=== PATIENT | female | born 1945 | race Caucasian/White ===

== ENCOUNTER 2019-06-12 08:56 | Day surgery (SDC) | payer OTHER ==
[2019-06-09 11:14] LABS: Absolute Lymphocytes (CBC) 1.6 K/uL (0.7-4.9); Basophils % 0.7 % (0-1.3); Hematocrit 39.4 % (36.0-45.0); Lymphocytes % 19.7 % (15.3-44.8); MPV 9.8 fL (7.6-11.3); RBC Red Blood Cell Count 4.22 M/uL (3.86-4.86)
[2019-06-09 11:15] LABS: Urine Appearance CLEAR; Urine Bilirubin NEGATIVE (NEG); Urine Blood NEGATIVE (NEG); Urine Color YELLOW; Urine Glucose NEGATIVE (NEG); Urine Protein NEGATIVE (NEG); Urine Specific Gravity <=1.005 (1.005-1.030); Urine Urobilinogen 0.2 mg/dL (0.2-1.0); Urine pH 7.5 (5.0-7.0)
[2019-06-09 11:20] LABS: Protime INR 0.95; Urine Microscopic Reflex NO UMIC
[2019-06-12] MEDS ORDERED: NA CHLORIDE 0.9% 1,000 ML ONE ×5 (09:03→16:47)
[2019-06-12] MEDS ORDERED: CEFAZOLIN/SWI 2gm 2 GM/20 ML SYR ONE (09:03)
[2019-06-12] MEDS ORDERED: SCOPOLAMINE HYDROBROMIDE PATCH TD ONE (09:03)
[2019-06-12] MEDS ORDERED: LIDOCAINE 2% MPF 5 ML VIAL ONE (10:28)
[2019-06-12] MEDS ORDERED: MIDAZOLAM HCL 2 MG/2 ML INJ ONE (10:28)
[2019-06-12] MEDS ORDERED: propofoL 200 MG/20 ML VIAL IV ONE (10:28)
[2019-06-12] MEDS ORDERED: FENTANYL CITR 250 MCG/5 ML ONE ×2 (10:28→14:16)
[2019-06-12] MEDS ORDERED: ROCURONIUM 50 MG/5 ML VIAL IV ONE ×2 (10:28→16:45)
[2019-06-12] MEDS ORDERED: GLYCOPYRROLATE 0.2 MG/ML SYR ONE ×2 (10:28→16:57)
[2019-06-12] MEDS ORDERED: dexAMETHasone 10 MG/ML VIAL ONE (11:06)
[2019-06-12] MEDS ORDERED: NA CHLORIDE 0.9% 100 ML IV ONE (11:06)
[2019-06-12] MEDS ORDERED: CEFAZOLIN SODIUM 1 GM/VIAL ONE ×2 (11:07→16:45)
[2019-06-12] MEDS ORDERED: ONDANSETRON 4 MG/2 ML VIAL ONE ×2 (11:09→16:57)
[2019-06-12] MEDS: BUPIVACAINE 0.25% PF 30 ML VIAL ONE ×2 (12:15→16:15)
[2019-06-12] MEDS: VASOPRESSIN 20 UNIT/ML VIAL ONE ×2 (13:32→17:49)
[2019-06-12] MEDS ORDERED: EPHEDRINE SULF 50 MG/ML VIAL ONE (14:54)
--- NOTE | 2019-06-12 15:11 | P.BOP ---
Preoperative diagnosis: intrabdominal adhesions, intraoperative consult Postoperative diagnosis: same Primary procedure: Laparoscopic lysis of adhesions Estimated blood loss: <5cc Specimen: none Findings: pericecal adhesions, left sigmoid adhesions Anesthesia: General Transferred to: Recovery Room Condition: Good
[2019-06-12] MEDS ORDERED: NS 0.9% VIAL 10 ML ONE (16:45)
[2019-06-12] MEDS ORDERED: Phenylephrine HCl 10 MG/ML 1 ML VIAL ONE (16:54)
[2019-06-12] MEDS ORDERED: Mastisol Adhesive Liq ONE (16:56)
[2019-06-12] MEDS ORDERED: NEOSTIGMINE 1 MG/ML -10 ML VIAL ONE (16:57)
[2019-06-12] MEDS ORDERED: KETOROLAC 30 MG/ML INJ ONE (16:57)
[2019-06-12] MEDS ORDERED: ONDANSETRON 4 MG/2 ML VIAL IV PRN (18:03)
[2019-06-12] MEDS ORDERED: MORPHINE 4 MG/ML SYR IV PRN (18:03)
[2019-06-12] MEDS ORDERED: PROMETHAZINE INJ 25 MG/ML AMP IV PRN (18:03)
--- NOTE | 2019-06-12 18:13 | P.BOP ---
Preoperative diagnosis: apical anterior and posterior prolapse, occult ANJU Postoperative diagnosis: same, extensive small and large bowel adhesions Primary procedure: Lapsc SCP, anterior repair, MUS, perineorrhaphy, cysto Secondary procedure: lysis of adhesions bladder and bowel Other procedure(s): Laparoscopic lysis of adhesions Environmental Programs Specialist: mahogany corbett (environmental emergencies assistant) Estimated blood loss: <50 Specimen: none Findings: extensive cecal sigmoid/small bowel adhesions, bladder adhesions from mesh Anesthesia: General Complications: None Drain(s): Urinary catheter Implants: Upsylon, TVT-O Fluids & blood products: [id number] Transferred to: Recovery Room (0/+1/-3/3.5/mod/6/0/0/n/a, left SSLF colpopexy no intact from past repair) Condition: Good
[2019-06-12 18:35] VITALS: O2SAT 95
[2019-06-12] MEDS: MORPHINE 4 MG/ML SYR ONE ×2 (18:36→18:48)
--- NOTE | 2019-06-12 20:10 | OP ---
Surgeon: Miguel Shah MD The intraoperative consult and lysis of adhesions consult. Preoperative Diagnosis: Intraabdominal adhesions. Intraoperative consult, please refer to Dr. Caceres's note for details on the preoperative diagnosis and postoperative diagnosis. Procedure: From my standpoint, laparoscopic lysis of adhesions. Specimen: None. Findings: adhesions and left sigmoid area adhesions. Anesthesia: General. Indications: This is the case of a 73-year-old patient brought to the OR by Dr. Caceres for gynecol ogical procedures. At the beginning of the case, they noticed patient had adhesions on the right low er quadrant from apparently previous appendectomy, also adhesions of the sigmoid area also. The area of the cul-de-sac was already inspected by Dr. Caceres. The ureters have been also identified. Si nce the adhesions involved part of the bowel, Dr. Caceres asked me to see if I can take a look at th e area and need lysis of adhesions. She asked me to see if I can do dissecting of the surgery for he r. So, I scrub in on the case. With the bowel laparoscopic instruments already on it we first move to the right lower quadrant. We have fixation of that the cecum and the small bowel to the right low er quadrant from previous surgery. So carefully we proceeded to dissect the area once again preserve the ureters at all time and proceed to do lysis of adhesions until part of the cecum and part of the small bowel. The case was done without any enterotomies with the LigaSure. Patient tole rated that procedure well. No bleeding. No bowel leak. The bowel now is mobilized the right side, but now on the left side we also have the same situation. Dr. Caceres already identified the ureter s clearly in view and then we proceeded to do the lysis of adhesions. Sigmoid was attached to the ar ea near the cul-de-sac carefully without doing any enterotomies. We proceeded to remove the adhesion s in the area. No bleeding. The bowel was intact. No enterotomies. The ureters still intact. So, Dr. Caceres now would start her surgery for the proposed procedure. Since my service no longer nee ded at this moment for lysis of adhesions, will go ahead and scrub out the case. The patient will co ntinue under the care of Dr. Caceres in their assistance. CASSIUS/CHERYL Voice ID: [id number] Report ID: [id number]
[2019-06-12] MEDS: Ringers Lactate 1,000 ML IV SCH (20:16)
[2019-06-12] MEDS: PSYLLIUM 1 PKT PO SCH (20:52)
[2019-06-12] MEDS: GABAPENTIN 300 MG CAP PO SCH (20:53)
[2019-06-12] MEDS ORDERED: HOME MED 1 EA UNK (Gabapentin [Gabapentin] 300 MG) PO SCH (21:00)
[2019-06-12] MEDS ORDERED: ATORVASTATIN 10 MG TAB PO SCH (21:00)
[2019-06-12] MEDS ORDERED: SALMETEROL IH SCH (21:00)
[2019-06-12] MEDS ORDERED: FLUTICASONE IH SCH (21:00)
[2019-06-13] MEDS: HEPARIN 5000 UNIT/ML 1 ML VIAL SQ SCH ×2 (01:05→08:45)
[2019-06-13] MEDS: ACETAMINOPHEN 500 MG TAB PO PRN ×2 (01:12→06:43)
--- NOTE | 2019-06-13 01:12 | OP ---
Date of Procedure: 06/12/2019 Surgeon: Yenny Caceres MD Test Equipment Mechanic: Stephon Lees. Preoperative Diagnoses: Apical and anterior posterior prolapse, occult stress urinary incontinence. Postoperative Diagnoses: Apical and anterior-posterior prolapse, occult stress urinary incontinence, small and large bowel extensive adhesions, bladder adhesions, as well as perineal body defect. Procedures Performed: Laparoscopic sacral colpopexy, vaginal anterior repair, vaginal mid urethral s ling, perineorrhaphy, cystoscopy, lysis of adhesions by me for bladder and bowel and lysis of adhesio ns of the cecum and sigmoid for Dr. Shah. Estimated Blood Loss: Less than 50. Specimens: No specimens. Complications: No complications. Drains: Bender catheter. Implants: Epsilon and TVT-O. Urine Output: 400. Findings: Intraop exam under anesthesia POP-Q 0, +1, -3, 3.5; moderate 6, 0, 0, NA. Left sacrospino us colpopexy tack was not intact and prolapsing whereas the right one was intact. There was a centra l bladder defect as well. There were extensive adhesions of the bladder underneath the mesh on the anterior wall when approache d laparoscopically. Vaginally, a similar mesh was encountered. Cecal adhesions to the anterior abdominal wall, right lateral wall, small bowel adhesions to the cecu m and to the lateral wall on the right side. A large bowel adhesion starting in the left pelvic brim going all the way down the left pelvic sidewall, adhesions to the ureter. Extensive endometriosis, still implants seen all over the sigmoid colon, all over the peritoneum of the pelvis, and in the lat eral sidewall and at the brim of the pelvis and slightly above as well. These implants were left in place. There was no way that all these could be excised and there was no indication of such from the pelvic pain standpoint. The mesh was attached to the apex anteriorly about 1.5 cm close to the apex of the vagina and then po steriorly it was dissected about 5 cm and attached with a 2 cm gap between the apex of the Y and the apex of the vagina. Protac used for tacking at the anterior longitudinal ligament. Indications For Procedure: The patient is a 73-year-old with recurrent vaginal prolapse, symptomatic bulge, had an anterior elevate in 2011, now with recurrence of prolapse she has been offered pessary observation and physical therapy surgery. She wanted to proceed with surgery. Discussed about vagi nal and laparoscopic repairs, vaginal repair was highly encouraged. However, the patient did not wan t to consider another vaginal repair because this had failed in the past. It was explained to her th at the colpopexy could be performed through a posterior approach, but she preferred to have an apical repair through the abdominal cavity because she knew that the recurrence rate with this would be low est and this is what she wanted, fully understanding that there would be bowel issue that could be en countered, the risk of fistula, bladder denervation, all these. She was consented and taken back to the OR. All the normal complications including bleeding, infection, injury to the bowel, bladder and ureters were all discussed. Not sexually active, dyspareunia, was also discussed with the patient. Description Of Procedure: After informed consent was verified, she was taken back to OR, placed in t he supine fashion on operating table. A 2 g of Ancef were given. She was placed in a dorsal lithoto my position. Pelvic exam performed, POP-Q as above. Abdomen, vulva, vagina, and perineum were prepp ed and draped in a sterile fashion. Bender was placed to drain the bladder and the vaginal retractors from the Epsilon kit was used. 1 cm infraumbilical incision was made with the scalpel using the Has son technique. Peritoneal entry was secured and insufflated. Then all the adhesions were seen in th e central area, right lateral aspect, and left lateral aspects from the omentum and small bowel to th e anterior abdominal wall. So, a 5 left port was placed under direct vision. Then, all the adhesion s were taken down with the help of the scissors and the Harmonic. Once all the anterior abdominal wa ll adhesions were taken down and the anterior right lower quadrant adhesions were also taken down wit h push-spread technique, then ports were placed, 5 suprapubic and 2 left and right lower quadrants we re placed. Then systematically adhesions were taken down from the left pelvic brim all the way to th e separate the ureter. The ureter was dissected and medially. Bowel was taken laterally f rom the vaginal cuff. From the lateral wall, sigmoid had to be at the distal part of the u reter where this was together by Dr. Shah as well as the cecal and small bowel adhesions on the r ight side, some of the adhesions were taken down by me and some by him. Then, once all these were ta naida down, they were tacked up. 3-0 Monocryl was used to corn picker epiploicae and the left upper quadra nt pole retracted with Abdulkadir-Lee Ann needle. Then the sacral promontory was visualized and the pro cedure was going to be feasible. So, at this time, dissection was started. Anteriorly, the peritone um covering right on the apex was opened up to get opening into the bladder and to the anterior ally rtment. Once this was dissected at least a 1.5 cm, I encountered the mesh and it was very difficult to separate this without getting into the vagina or devascularizing the bladder. So, since there was 1.5 cm space distal to the vaginal apex, this would be the point of attachment for the sacral colpop exy mesh anteriorly. This was thought to be sufficient and that the rest would be to fixed vaginally . Posteriorly, the dissection was performed to at least 6 cm opening up the posterior peritoneum and dissecting down the rectum. Once this was dropped adequately from [id number] as well, then perito neum was opened up on the promontory with the Harmonic Scalpel and then the incision was carried down all the way in between the bowel and the right ureter all the way to the area of the left uterosacra l and then connected to the peritoneal opening that exposed the posterior wall. Once this was connec celestine, and this was spread open, the promontory dissection was performed by opening up the presacral fa t protecting the autonomic nerves and then anterior longitudinal ligament was exposed. Once this win mohsen was prepared, then the graft was opened up. It was trimmed to 8 cm in its length. The anterior flap sutured to the sacral arm with a loose stitch. Then, V-Loc placed in the middle of the posterio r leaf and then this was placed in the midline as far distally as the dissection allowed me, which wa s about 6 cm from the apex. Once this was done, 2 passes were taken and this was locked in place and the mesh, brought into the abdominal cavity and laid flat on the sacrum. Then the graft was pulled up superiorly Prolene sutures were placed on each side 2-0 and then tied separately from each port. The graft was laid up anteriorly, freed up by taking out the suture and then the sacral arm was fixed onto the sacral promontory with the help of the ProTack. Three rows of purvi fired first, then fo llowed by 3 more. The second 2 were slightly more lateral and so placed the mesh more central on the promontory and then the tacks were placed. Then the mesh was trimmed, was not too tense, but approp riately tensioned. Then anteriorly the fixation was done with a V-Loc in the center and then 2 Prole ayush on each side, then the peritoneum closed with the help of V-Loc in a Y-shaped fashion. Thorough irrigation and suction performed. No evidence of any injury to the ureters or the bladder o r the bowel. All the trocars were removed under direct vision. Fascia was closed at the umbilicus w ith tag sutures and purvi to close all incisions. Anteriorly, midline mid urethral area was picked up, vaginal epithelium was picked up with 2 Allis cl amps, injected with dilute vasopressin of 8 mL, then midline 1 cm incision was made. Dissection was performed on either sides to the ipsilateral obturator space. Obturator membrane perforated. The tr ack opened up at a 45-degree angle to the horizontal and vertical planes, pointing to the ipsilateral shoulder. Both sides were dissected in a similar fashion. Then wing guides were passed and spike p assed. No vaginal perforation on the paravaginal area. Once mesh was tensioned with the help of Metzenbaum in the center, the sheaths were pulled out, mesh trimmed very flushed with the skin and the vaginal epithelium closed with the help of 3-0 Vicryl in a continuous horizontal mattress fashion and then groin incisions closed with the help of Dermabond. Vaginally, mid anterior wall still had a bulge with the lowest point at -2 to -1. When I pulled down with the Allis, the apex was at -8 to get an anterior vaginal wall that is optimal without prolapse. I made a vertical incision for about 2 cm distal to the urethrovesical junction. After injecting d ilute vasopressin, then a transverse incision was made further proximally, a vertical incision was ma de, and then a brenda-shaped area cut out on the vaginal epithelium after dissecting the bladder and it from the vaginal epithelium. This brenda-shaped incision was made. Then closed the underlying connective tissue with the help of 2-0 PDS in a continuous running fashion from side-to-si de. Once this was trimmed and cut, then the vaginal epithelial closure was started with the help of a 2-0 Vicryl in a continuous running fashion starting anteriorly and distally in a vertical fashion a nd then in a horizontal fashion sideways at the proximal part of the anterior wall. Once this was do ne, there was excellent reduction in the bulge anteriorly. Cystoscopy was performed and there was no evidence of any obstruction. Both ureteric orifices had st juana jets of urine and no evidence of any bladder perforation or foreign body. No evidence of any tumors either and close inspection of the entire bladder. On the posterior aspect, there was a defect in the perineal body very distal posterior aspect because only 1.5 to 2 cm of the distal wall was not fully supported as the mesh came down that far. So, a v asopressin was injected. A brenda-shaped incision was made with the help of scalpel dissected with Metzenbaum scissors. Then, the defect here distally the hymen was picked together with the help of 2 -0 Vicryl and then the perineal body picked together with another 2-0 Vicryl interrupted sutures. Th en 3-0 Vicryl was used to continuously close the incision and the posterior wall perineum. Rectal ex am negative for any foreign body or suture. Bender was replaced. Packing was placed. She was recove ring. Instrument needle, and sponge counts x3 were corrected at the end of the case. She was recove red from anesthesia in the OR. Toradol was given and she was taken to the PACU in stable condition. GOLDY/CHERYL Voice ID: [id number] Report ID: [id number]
[2019-06-13] MEDS: Ringers Lactate 1,000 ML IV SCH (03:00)
[2019-06-13] MEDS ORDERED: LOSARTAN/HCTZ 50-12.5 PO SCH (06:00)
[2019-06-13 06:11] LABS: Absolute Lymphocytes (CBC) 1.8 K/uL (0.7-4.9); Basophils % 0.3 % (0-1.3); Hematocrit 30.4 % (36.0-45.0); Lymphocytes % 13.1 % (15.3-44.8); MPV 10.1 fL (7.6-11.3); RBC Red Blood Cell Count 3.27 M/uL (3.86-4.86)
[2019-06-13 06:26] LABS: Potassium 3.7 mmol/L (3.5-5.1)
[2019-06-13 07:11] VITALS: TEMP 98.5
[2019-06-13] MEDS ORDERED: PANTOPRAZOLE 40MG TABLET PO SCH (07:30)
[2019-06-13] MEDS: GABAPENTIN 300 MG CAP PO SCH (07:51)
[2019-06-13 07:52] VITALS: BP 115/60
[2019-06-13] MEDS ORDERED: METFORMIN ER 500 MG TAB PO SCH (08:00)
[2019-06-13 08:59] LABS: Blood Morphology Comment NOT SEEN (NOT SEEN); Platelet Estimate ADEQ; Urine White Blood Cell Casts OK
[2019-06-13] MEDS ORDERED: SITAGLIPTIN PHOS 100 MG TAB PO SCH (09:00)
[2019-06-13] MEDS ORDERED: DOCUSATE NA 100 MG CAP PO SCH (09:00)
[2019-06-13] MEDS: PSYLLIUM 1 PKT PO SCH (09:00)
[2019-06-13] MEDS ORDERED: LANSOPRAZOLE PO SCH (09:00)
[2019-06-13] MEDS ORDERED: AMLODIPINE 5 MG TAB PO SCH (09:00)
[2019-06-13] MEDS ORDERED: FIBER PO SCH (09:00)
== END 2019-06-13 10:30 | disposition home or self-care (01) ==
LOC: OR 08:56 → 2ND-WC 18:03 → OR 06-13 10:30
PROVIDERS: ATTEND Obstetrics & Gynecology
PROC: 0UQF0ZZ Repair Cul-de-sac, Open Approach (ICD-10-PCS; 2019-06-12)
PROC: 0JQC0ZZ Repair Pelvic Region Subcutaneous Tissue and Fascia, Open Approach (ICD-10-PCS; 2019-06-12)
PROC: 0HQ9XZZ Repair Perineum Skin, External Approach (ICD-10-PCS; 2019-06-12)
PROC: 0TSD4ZZ Reposition Urethra, Percutaneous Endoscopic Approach (ICD-10-PCS; 2019-06-12)
PROC: 0DNW4ZZ Release Peritoneum, Percutaneous Endoscopic Approach (ICD-10-PCS; 2019-06-12)
PROC: 0USG4ZZ Reposition Vagina, Percutaneous Endoscopic Approach (ICD-10-PCS; principal; 2019-06-12 10:30)
DX: N99.3 Prolapse of vaginal vault after hysterectomy (principal); N95.2 Postmenopausal atrophic vaginitis; N39.3 Stress incontinence (female) (male); I10 Essential (primary) hypertension; E11.9 Type 2 diabetes mellitus without complications; K66.0 Peritoneal adhesions (postprocedural) (postinfection)
CPT/HCPCS: 57425; 57265; 51992; 85025 ×2; 80048 ×2; 36415 ×2; 86900; 86850; 85610; 86901; 82947 ×2; 85730; 81003; 49329; J2704; J2710; J2370; J2250; J3010 ×2; J1100; J0690 ×3; J7120; J7030 ×5; J2405 ×2

== ENCOUNTER 2021-05-24 06:29 | Day surgery (SDC) | payer OTHER ==
[2021-05-19 11:47] LABS: Absolute Lymphocytes (CBC) 2.1 K/uL (0.7-4.9); Basophils % 0.9 % (0-1.3); Hematocrit 40.3 % (36.0-45.0); Lymphocytes % 24.6 % (15.3-44.8); MPV 9.1 fL (7.6-11.3); RBC Red Blood Cell Count 4.24 M/uL (3.86-4.86)
[2021-05-19 11:51] LABS: Protime INR 0.95
[2021-05-19 11:58] LABS: Potassium 3.9 mmol/L (3.5-5.1)
[2021-05-19 15:40] LABS: Urine Appearance CLOUDY (Clear); Urine Bilirubin NEGATIVE (Negative); Urine Blood NEGATIVE (Negative); Urine Color YELLOW (Yellow); Urine Glucose NEGATIVE (Negative); Urine Protein NEGATIVE (Negative); Urine Urobilinogen 0.2 mg/dL (0.2-1.0); Urine pH 6.5 (5.0-7.0)
[2021-05-19 15:47] LABS: Urine Microscopic Reflex ORDER UMIC
[2021-05-19 15:49] LABS: Urine Bacteria >50 /HPF (<20); Urine RBC <5 /HPF (NONE SEEN)
[2021-05-23 12:16] LABS: Absolute Lymphocytes (CBC) 2.2 K/uL (0.7-4.9); Basophils % 0.8 % (0-1.3); Hematocrit 36.5 % (36.0-45.0); Lymphocytes % 24.2 % (15.3-44.8); MPV 9.1 fL (7.6-11.3); RBC Red Blood Cell Count 3.85 M/uL (3.86-4.86)
[2021-05-24] MEDS ORDERED: NA CHLORIDE 0.9% 1,000 ML ONE (06:35)
[2021-05-24] MEDS ORDERED: CEFAZOLIN/SWI 2gm 2 GM/20 ML SYR ONE (06:35)
[2021-05-24] MEDS ORDERED: NA CHLORIDE 0.9% 100 ML IV ONE (06:54)
[2021-05-24] MEDS ORDERED: CEFAZOLIN SODIUM 1 GM/VIAL ONE (06:54)
[2021-05-24] MEDS ORDERED: VASOPRESSIN 20 UNIT/ML VIAL ONE (06:55)
[2021-05-24] MEDS ORDERED: LIDOCAINE 1% W/EPI 1:100,000 MDV 20 ML VIAL ONE (06:55)
[2021-05-24] MEDS ORDERED: GLYCOPYRROLATE 0.2 MG/ML SYR ONE ×2 (07:04→08:21)
[2021-05-24] MEDS ORDERED: MIDAZOLAM HCL 2 MG/2 ML INJ ONE (07:04)
[2021-05-24] MEDS ORDERED: LIDOCAINE 1% MPF 2 ML AMPULE ONE (07:05)
[2021-05-24] MEDS ORDERED: propofoL 200 MG/20 ML VIAL IV ONE (07:05)
[2021-05-24] MEDS ORDERED: FENTANYL CITR 100 MCG/2 ML ONE (07:05)
[2021-05-24] MEDS ORDERED: ROCURONIUM 50 MG/5 ML VIAL IV ONE (07:07)
[2021-05-24] MEDS ORDERED: ACETAMINOPHEN 500 MG TAB ONE (07:22)
[2021-05-24] MEDS ORDERED: dexAMETHasone 10 MG/ML VIAL ONE (08:19)
[2021-05-24] MEDS ORDERED: KETOROLAC 30 MG/ML INJ ONE (08:19)
[2021-05-24] MEDS ORDERED: ONDANSETRON 4 MG/2 ML VIAL ONE (08:21)
[2021-05-24] MEDS ORDERED: NEOSTIGMINE 1 MG/ML -5 ML ONE (08:31)
[2021-05-24] MEDS ORDERED: HYDROCODONE/APAP 5/325 MG TAB PO PRN (08:53)
[2021-05-24] MEDS ORDERED: HOME MED 1 EA UNK (L.Acidoph,Paracasei, B.Lactis [Probiotic] Capsule) PO SCH (09:00)
[2021-05-24] MEDS ORDERED: HOME MED 1 EA UNK (Cranberry [Cranberry] 500 MG Capsule) PO SCH (09:00)
[2021-05-24] MEDS ORDERED: CRANBERRY FRUIT EXTRACT 400 MG CAP PO SCH (09:00)
[2021-05-24] MEDS ORDERED: PSYLLIUM 1 PKT PO SCH (09:00)
[2021-05-24] MEDS ORDERED: SITAGLIPTIN PHOS 100 MG TAB PO SCH (09:00)
[2021-05-24] MEDS ORDERED: ESTRADIOL 10 MCG VAG SCH (09:00)
[2021-05-24] MEDS ORDERED: ASPIRIN 81 MG CHEWABLE TABLET PO SCH (09:00)
[2021-05-24] MEDS ORDERED: METFORMIN ER 500 MG TAB PO SCH (09:00)
[2021-05-24] MEDS ORDERED: [UNRECOGNIZED DRUG - MIXTURE] PO SCH (09:00)
[2021-05-24] MEDS ORDERED: RALOXIFENE HCL 60 MG TAB PO SCH (09:00)
[2021-05-24] MEDS ORDERED: GABAPENTIN 300 MG/6 ML PO SCH (09:00)
[2021-05-24] MEDS ORDERED: AMLODIPINE 5 MG TAB PO SCH (09:00)
[2021-05-24] MEDS ORDERED: DOCUSATE NA 100 MG CAP PO SCH (09:00)
[2021-05-24] MEDS ORDERED: HOME MED 1 EA UNK (Fluticasone/Salmeterol [Advair Hfa 115-21 Mcg Inhaler] 12 GM Hfa.Aer.Ad IH SCH (09:00)
[2021-05-24] MEDS ORDERED: PANTOPRAZOLE 40MG TABLET PO SCH (09:00)
--- NOTE | 2021-05-24 09:00 | P.BOP ---
Preoperative diagnosis: urinary retention, s/p Transobturator sling Postoperative diagnosis: same and anterior wall defect, stage 2 Primary procedure: vaginal urethrolysis, partial mid urethral sling removal Electronic Maintenance Supervisor: Brianne Brown (Co-surgeon: Dr Meza [facility]) Estimated blood loss: min Specimen: mesh Findings: tight mid-urethral sling,stg2 ant prolapse,-1/0/-5/4.5/thick/7/-3/-3/na Anesthesia: General Complications: None Implants: none Transferred to: Recovery Room Condition: Good
[2021-05-24 10:14] VITALS: BP 118/45; TEMP 97.1; O2SAT 98
--- NOTE | 2021-05-24 11:17 | OP ---
Date of Procedure: 05/24/2021 Surgeon: Yenny Caceres MD Supervisor Electron Tube Processing: Brianne Villarreal. Preoperative Diagnoses: The patient with urinary retention, status post transobturator sling, and sa crocolpopexy in June 2019. Postoperative Diagnoses: The patient with urinary retention, status post transobturator sling, and s acrocolpopexy in June 2019 and anterior wall defect stage II. Primary Procedures: Vaginal urethrolysis, partial midurethral sling removal. Co-surgeon: Dr. Meza, Urology. Estimated Blood Loss: Minimal. Specimens: The excised portions of the mesh. Anesthesia: General with LMA. Complications: No complications. Drains: No drains or implants. Condition: The patient's condition is stable. Findings: There was a tight midurethral sling on palpation, significant anterior wall prolapse, most ly distal anterior wall. [place] was still suspended. Her POP-Q is -1, 0, point BA was at the hymenal opening, -5 for point C, 4.5 genital hiatus, perineal body thick vaginal length 7 cm. Posterior wall -3, -3 and NA. Procedure In Detail: After informed consent was verified, the patient was brought back to the OR. S he was given 2 g of Ancef preop. The patient has the preadmission urinary culture that was positive for E coli and has been on Levaquin 750 mg daily. She has 4 days and this is day #5. She has a plan to continue and finish her antibiotics. Asymptomatic, white count normal. After she was placed in supine fashion on the operating table, SCDs were placed. General anesthesia was given. She was placed in the dorsal lithotomy position using Andrea stirrups. Pelvic exam was pe rformed. Then lower abdomen, vulva, vagina, and perineum were prepped and draped in a sterile fashio n. A time-out was done and procedure started. A Bender catheter was placed to drain the bladder and this was clamped and retracted superiorly. Then , examination of the anterior wall was done. The mesh was palpable, more like a cord like purse-stri ng from 1 obturator space to the other, mostly in the midurethral area. The anterior wall prolapse w as the new significant finding; however, this has been present to a small degree. This was a signifi cant change from my last exam in the office over the past few months. An incision was made in the midurethral area using a 15 blade. A 1.5 cm incision was made over the s ling extending it proximally and distally. The vaginal epithelium, subepithelium, and connective tis tang were incised and Allis clamps were placed 2 on each side after releasing the flap from the underl jessica sling on both sides. Then, the mesh sling was identified by its blue fibers. Then, it was diss ected along the tracts towards the obturator space in the direction, which the sling was placed, both in front of the sling and then behind it. It was divided at the midurethral area and excised from t he underlying suburethral tissues carefully using Metzenbaum scissors. Once the sling was released f rom the underlying tissues on both sides all the way down at least 1.5 cm from the periurethral area. This release was done on both sides and on palpation of the periurethral tissues, this h as resolved. So at this point, the mesh was cut and excised at least 1 cm on each side. Once this w as handed off for permanent pathology, the tissues were thoroughly irrigated and suctioned and closur e was done with the help of a 3-0 Vicryl in a horizontal mattress fashion. Once this was done, there was excellent hemostasis, no bleeding and nothing palpable on the vaginal epithelium. There was no perforation here. The bladder was drained and the catheter removed. On palpation during the case, t he urethra was safely preserved and it was palpable and far away from the sling. So, did this proced ure together with Dr. Meza as he assisted me in identifying and confirming the findings and helpin g the identification of the sling and the extent of dissection on both sides. EBL was minimal. Inst rument, needle, and sponge counts were correct at the end of the case. Bender was removed and the pat ient will be discharged home today. She has a 1-week followup appointment with me. She will keep track of her waiting as before. She wi ll be instructed to straight cath 2-3 times a day as before and her bladder function will be re-evalu ated at her 1-week postop. Bladder diary will also be filled before she comes back. Plan is to evaluate her urodynamic findings after the recovery from this release was done and I would prefer to wait 3 weeks before we schedule her next urodynamics appointment. The most important eval uations would be for her pressure flow study and evaluation of her urethral closure pressures as well as her Valsalva leak point pressures. We will see if the patient becomes symptomatic with stress in continence. Also plan to discuss with the patient about her anterior wall prolapse. She probably needs laparosco pic dissection to identify the anterior wall and attach the anterior wall to the BioMesh as the BioMe sh seems to be in place holding the posterior wall of the vagina without any problems. We will make the further plan when I see her in 1 week. GOLDY/CHERYL Voice ID: [id number] Report ID: [id number]
[2021-05-24] MEDS ORDERED: ATORVASTATIN 10 MG TAB PO SCH (21:00)
[2021-05-25] MEDS ORDERED: LOSARTAN/HCTZ 50-12.5 PO SCH (06:00)
== END 2021-05-24 10:13 | disposition home or self-care (01) ==
LOC: OR 06:29
PROVIDERS: ATTEND Obstetrics & Gynecology
PROC: 0TND0ZZ Release Urethra, Open Approach (ICD-10-PCS; principal; 2021-05-24 07:30)
DX: R33.8 Other retention of urine (principal); R39.16 Straining to void; N39.3 Stress incontinence (female) (male); E11.9 Type 2 diabetes mellitus without complications; I10 Essential (primary) hypertension; Z20.822 Contact with and (suspected) exposure to COVID-19
CPT/HCPCS: 87088; 85025 ×2; 87086; 80048; 36415 ×2; 86900; 86850; 85610; 86901; 82947 ×2; 88300; 85730; 87077; 87186; 53500; U0002; J2704; J2250; J3010; J1100; J2710; J0690 ×2; J7030; J2405; 81003; 81015

== ENCOUNTER 2021-11-08 06:28 | Day surgery (SDC) | payer OTHER ==
[2021-10-21 08:45] LABS: Absolute Lymphocytes (CBC) 2.2 K/uL (0.7-4.9); Hematocrit 38.1 % (36.0-45.0); Lymphocytes % 26.2 % (15.3-44.8); MPV 9.2 fL (7.6-11.3); RBC Red Blood Cell Count 4.15 M/uL (3.86-4.86)
[2021-10-21 09:17] LABS: Urine Appearance CLEAR (Clear); Urine Bilirubin NEGATIVE (Negative); Urine Blood NEGATIVE (Negative); Urine Color YELLOW (Yellow); Urine Glucose NEGATIVE (Negative); Urine Protein NEGATIVE (Negative); Urine Specific Gravity 1.015 (1.005-1.030); Urine pH 6.5 (5.0-7.0)
[2021-10-21 09:18] LABS: Urine Microscopic Reflex ORDER UMIC; Urine Urobilinogen 0.2 mg/dL (0.2-1.0)
[2021-10-21 09:35] LABS: Urine Bacteria >50 /HPF (<20); Urine RBC <5 /HPF (NONE SEEN)
[2021-11-08] MEDS ORDERED: SCOPOLAMINE HYDROBROMIDE PATCH TD ONE (06:54)
[2021-11-08] MEDS ORDERED: NA CHLORIDE 0.9% 1,000 ML ONE ×2 (06:54→09:01)
[2021-11-08] MEDS ORDERED: LIDOCAINE 1% W/EPI 1:100,000 MDV 20 ML VIAL ONE (06:58)
[2021-11-08] MEDS ORDERED: CEFAZOLIN SODIUM 1 GM/VIAL ONE (06:58)
[2021-11-08] MEDS ORDERED: propofoL 200 MG/20 ML VIAL IV ONE (07:18)
[2021-11-08] MEDS ORDERED: ROCURONIUM 50 MG/5 ML VIAL IV ONE ×2 (07:19→09:51)
[2021-11-08] MEDS ORDERED: LIDOCAINE 2% MPF 5 ML VIAL ONE (07:19)
[2021-11-08] MEDS ORDERED: MIDAZOLAM HCL 2 MG/2 ML INJ ONE (07:20)
[2021-11-08] MEDS ORDERED: FENTANYL CITR 250 MCG/5 ML ONE (07:20)
[2021-11-08] MEDS ORDERED: GLYCOPYRROLATE 0.2 MG/ML SYR ONE (07:20)
[2021-11-08] MEDS ORDERED: NEOSTIGMINE 1 MG/ML -10 ML VIAL ONE (07:23)
[2021-11-08] MEDS ORDERED: ONDANSETRON 4 MG/2 ML VIAL ONE ×2 (07:23→12:40)
[2021-11-08] MEDS ORDERED: VASOPRESSIN 20 UNIT/ML VIAL ONE (07:29)
[2021-11-08] MEDS ORDERED: CEFAZOLIN 2 GM IN 0.9% NACL 2 GM/100 ML BAG IV ONE (08:00)
[2021-11-08] MEDS ORDERED: EPHEDRINE SULF 50 MG/ML VIAL ONE (08:19)
[2021-11-08] MEDS ORDERED: Phenylephrine HCl 10 MG/ML 1 ML VIAL ONE (08:19)
[2021-11-08] MEDS: BUPIVACAINE 0.25% PF 10 ML VIAL ONE ×2 (08:20→08:40)
[2021-11-08] MEDS ORDERED: NS 0.9% VIAL 10 ML ONE (09:32)
[2021-11-08] MEDS ORDERED: BSS OPTHALMIC SOL 15 ML OPTH ONE (09:37)
[2021-11-08] MEDS ORDERED: DOCUSATE NA 100 MG CAP PO PRN (12:07)
[2021-11-08] MEDS ORDERED: ACETAMINOPHEN 500 MG TAB PO PRN (12:09)
[2021-11-08] MEDS ORDERED: PROMETHAZINE INJ 25 MG/ML AMP IV PRN (12:09)
[2021-11-08] MEDS: HYDROMORPHONE HCL 1 MG/ML INJ ONE ×2 (12:35→12:50)
--- NOTE | 2021-11-08 12:47 | P.BOP ---
Preoperative diagnosis: recurrent cystocele (midline+para-vag detachments) Postoperative diagnosis: same, and apical prolapse, cecal and small bowel adhesions Primary procedure: diag laparoscopy PAULIE (25min spent), mesh augmented ant wall repair Secondary procedure: along with apical repair, reattachment to SCP mesh cystocele Pipe Setter: Brianne Brown Estimated blood loss: min Specimen: none Findings: -1/0/-4/3.5/thick/8/-3/-3/na, anterior wall detached completely Anesthesia: General Complications: None Drain(s): Urinary catheter Implants: SCP ant arm placed Fluids & blood products: UO 150 Transferred to: Recovery Room
[2021-11-08] MEDS ORDERED: IBUPROFEN 600 MG TAB PO PRN (13:34)
[2021-11-08] MEDS ORDERED: MORPHINE 4 MG/ML SYR IV PRN (14:48)
[2021-11-08 15:03] VITALS: O2SAT 93; BMI 22.1
[2021-11-08] MEDS: PSYLLIUM 1 PKT PO SCH (17:33)
[2021-11-08] MEDS: METFORMIN ER 500 MG TAB PO SCH (17:33)
[2021-11-08] MEDS: GABAPENTIN 300 MG CAP PO SCH ×2 (17:34→20:49)
[2021-11-08] MEDS: Ringers Lactate 1,000 ML IV SCH (20:54)
[2021-11-08] MEDS ORDERED: ATORVASTATIN 10 MG TAB PO SCH (21:00)
[2021-11-08] MEDS ORDERED: Fluticasone/Salmeterol [Advair Hfa 115-21 Mcg Inhaler] IH SCH (21:00)
[2021-11-09] MEDS: Ringers Lactate 1,000 ML IV SCH (05:00)
[2021-11-09] MEDS ORDERED: LOSARTAN/HCTZ 50-12.5 PO SCH (06:00)
[2021-11-09 06:24] LABS: Hematocrit 32.8 % (36.0-45.0); Lymphocytes % 15.4 % (15.3-44.8); MPV 8.8 fL (7.6-11.3); RBC Red Blood Cell Count 3.52 M/uL (3.86-4.86)
[2021-11-09] MEDS ORDERED: PANTOPRAZOLE 40MG TABLET PO SCH (06:30)
[2021-11-09 06:32] LABS: Potassium 3.5 mmol/L (3.5-5.1)
[2021-11-09] MEDS ORDERED: GLUCOSAM/CHONDROI 500mg-400mg PO SCH (09:00)
[2021-11-09] MEDS ORDERED: CRANBERRY FRUIT EXTRACT 400 MG CAP PO SCH (09:00)
[2021-11-09] MEDS: PSYLLIUM 1 PKT PO SCH (09:00)
[2021-11-09] MEDS ORDERED: Cranberry 500 MG Capsule PO SCH (09:00)
[2021-11-09] MEDS ORDERED: Lifitegrast [Xiidra] Droperette OPTH SCH (09:00)
[2021-11-09] MEDS ORDERED: AMLODIPINE 5 MG TAB PO SCH (09:00)
[2021-11-09] MEDS ORDERED: SITAGLIPTIN PHOSPHATE 100 MG PO SCH (09:00)
[2021-11-09] MEDS ORDERED: LACTOBACILLUS/ACIDOPHILUS TAB PO SCH (09:00)
[2021-11-09] MEDS: METFORMIN ER 500 MG TAB PO SCH (09:25)
[2021-11-09] MEDS: GABAPENTIN 300 MG CAP PO SCH (09:26)
[2021-11-09 12:09] VITALS: BP 127/66; TEMP 98
--- NOTE | 2021-11-14 15:07 | OP ---
Date of Procedure: 11/08/2021 Surgeon: Yenny Caceres MD Weaving Teacher: Brianne Villarreal. Preoperative Diagnoses: Recurrent cystocele, midline and paravaginal detachment, status post sacrocolpopexy 2 years ago, and voiding dysfunction. Postoperative Diagnoses: Recurrent cystocele, midline and paravaginal detachment, apical prolapse, cecal and small bowel adhesions. Procedures Performed: Diagnostic laparoscopy, lysis of adhesions of small bowel and cecal adhesions, mesh augmented anterior wall repair, reattachment of the sacrocolpopexy mesh along with apical repair using anterior attachment of the Y- Mesh. Anesthesia: General endotracheal. Ebl: None. Specimen: None. Complications: None. Drains: Bender catheter. Implants: Y-mesh anterior arm. Urine Output: 150. Findings: POP-Q is -1, 0, -5 anterior wall detachment. On laparoscopic exam from the mesh, there was no evidence of any mesh in the anterior compartment. This patient is status post vaginal mesh repair in [address] Caceres and the sacrocolpopexy and Y-Mesh attachment in 2019. Anterior wall was dissected 4.5 cm from the apex and secured with the help of 2 Prolene sutures at both distal ends and central PDS suture followed by 2 PDS sutures to the attachment of the anterior wall proximal attachment close to the apex through the mesh and then the mesh was tunneled through the peritoneum to be reattached to the wall and coming through the area of the uterosacral and anchored with 2 [id number] Prolene sutures. The entire mesh was re-peritonealized and apical support and anterior support were restored after examination in the operating room. Procedure In Detail: After the patient was consented in the preoperative area, she was taken back for anterior wall suspension and apical suspension as needed reattached to the posterior arm of the sacrocolpopexy mesh, which was intact. 2 g of Ancef were given. SCDs were placed. The patient was taken to the OR, placed in supine fashion on the operating table and general anesthesia was given. She was placed in dorsal lithotomy position. Pelvic exam performed. Abdomen, vulva, vagina, and perineum were prepped and draped in sterile fashion. Sponge on a stick was placed in the vagina and Bender was placed to drain the bladder. A 1 cm infraumbilical incision was made with the scalpel using the open laparoscopy technique. Fascia incised and tagged with sutures. Génesis and a 5 suprapubic port were all placed under direct vision. Coming down, there were small bowel adhesions at the level of the sacral fixation and the bowel adhesions from the small bowel to the cecum were taken down sharply with scissors. Once the entire lysis was done, anterior wall was exposed using the sacrocolpopexy retractor in the vaginal canal (Colpassist) to expose the anterior wall. The peritoneum was opened over the top of the vaginal cuff. Then, the bladder was dissected down at least 4.5 cm to the level of the trigone. Then lateral wall was cleared up as well for the flap, placing the mesh, and attachment. Then the peritoneum opened and tunneled from the right lateral aspect towards the neck of the mesh at the uterosacral and once this was done, the tunnel was passed through and through. Then, 5.5 cm of the anterior wall mesh was taken. 2 lateral distal prolone 2-0 figure of 8 sutures were placed to hold the distal mesh in place over the anterior vaginal wall, 2-0 PDS placed in jaswant distal center an dtwo such near the vaginal apex to hold the mesh in place without displacement and flat. Then the mesh was passed through the tunnels and 2-0 Prolene sutures were placed figure of 8 x2 to reattach this to the existing intact posterior arm of the old mesh. Continuous 3-0 Monocryl was used to close the peritoneum in a continuous running fashion. The apical suspension and the anterior suspension were examined vaginally and were satisfactory and adequate, despite lateral support weakness, no need seen for a paravaginal repair. The case was completed and the scope was removed. The umbilical incision closed with the help of a tagged sutures tied to fascia, interrupted 4-0 chromic for all skin insicions after all trocars were removed while being visual. Bender was removed. Cystoscopy was begun and strong jets of urine were seen. The patient tolerated the procedure well. Bender was left in place. Vaginal retractors were removed. Instrument, needle, and sponge counts were correct. GOLDY/CHERYL Voice ID: [id number] Report ID: [id number] [facility] HOSPITALPasquale
== END 2021-11-09 12:05 | disposition home or self-care (01) ==
LOC: OR 06:28 → 2ND-WC 13:16 → OR 11-09 12:05
PROVIDERS: ATTEND Obstetrics & Gynecology
PROC: 0USG7ZZ Reposition Vagina, Via Natural or Artificial Opening (ICD-10-PCS; 2021-11-08)
PROC: 0DN84ZZ Release Small Intestine, Percutaneous Endoscopic Approach (ICD-10-PCS; 2021-11-08)
PROC: 0JUC0JZ Supplement of Pelvic Region Subcutaneous Tissue and Fascia with Synthetic Substitute, Open Approach (ICD-10-PCS; 2021-11-08)
PROC: 0DN84ZZ Release Small Intestine, Percutaneous Endoscopic Approach (ICD-10-PCS; principal; 2021-11-08 07:30)
DX: N81.12 Cystocele, lateral (principal); N95.2 Postmenopausal atrophic vaginitis; R33.8 Other retention of urine; I10 Essential (primary) hypertension; E11.9 Type 2 diabetes mellitus without complications; Z20.822 Contact with and (suspected) exposure to COVID-19; N73.6 Female pelvic peritoneal adhesions (postinfective)
CPT/HCPCS: 44180; 57282; 87088; 85025 ×2; 87086; 80048; 36415 ×2; 86900 ×2; 86850 ×2; 86901 ×2; 82947 ×2; 87077 ×3; 87186 ×3; 57240; 57267; U0002 ×2; J2704; J2710; J3010; J1170; J0690 ×2; J7120 ×3; J7030 ×2; J2405 ×2; 81003; 81015; J2250; J2370

== ENCOUNTER 2023-11-25 16:43 | Emergency (ER) | payer OTHER ==
--- OUTSIDE RECORDS SUMMARY | 2023-11-25 16:46 | XMS REPORT | Clinical Summary ---
Author Name Unknown Organization [facility] Address [address] [place] [address] Care Team Providers Care Welder Name Role Phone Krista Larios MD Primary Care Provider [phone] Yenny Caceres MD Unavailable [phone] Yenny Caceres MD Unavailable [phone] Allergies Active Allergy Reactions Criticality Noted Date Comments Tetanus Vaccines And Toxoid High 03/29/2020 Severe swelling at the site of injection Medications Medication Sig Dispensed Refills Start Date End Date Status amLODIPine (NORVASC) 5 mg tablet Take 1 tablet by mouth daily. 01/06/2020 Active atorvastatin (LIPITOR) 10 mg tablet Take 1 tablet by mouth daily. 01/06/2020 Active estradiol (ESTRACE) 0.1 mg/g (0.01%) vaginal cream Insert 1 g into the vagina as needed. 07/28/2019 Active Advair HFA 115-21 mcg/actuation inhaler Inhale 1 puff by mouth twice daily. 01/06/2020 Active gabapentin (NEURONTIN) 300 mg capsule Take 1 capsule by mouth 3 (three) times a day. 01/06/2020 Active losartan-hydrochlorothi azide (HYZAAR) 50-12.5 mg per tablet Take 1 tablet by mouth daily. 01/06/2020 Active metFORMIN (GLUCOPHAGE) 1000 mg tablet Take 1 tablet by mouth twice daily. 01/06/2020 Active pantoprazole (PROTONIX) 40 mg EC tablet Take 1 tablet by mouth daily. 01/06/2020 Active raloxifene (EVISTA) 60 mg tablet Take 1 tablet by mouth daily. 01/06/2020 Active Januvia 100 mg tablet Take 1 tablet by mouth daily. 01/06/2020 Active tamsulosin (FLOMAX) 0.4 mg 24 hr capsule Take 1 capsule by mouth daily. 03/26/2020 Active aspirin 81 mg EC tablet Take 81 mg by mouth daily. Active Saccharomyces boulardii (FLORASTOR) 250 mg capsule Take 250 mg by mouth daily. Active calcium polycarbophil (FIBER-TABS ORAL) Take 1 tablet by mouth daily. Active docusate sodium (STOOL SOFTENER ORAL) Take 1 tablet by mouth daily. Active cranberry fruit extract (ELLURA ORAL) Take 1 tablet by mouth daily. Active Active Problems Patient Care Coordination No te Formatting of this note migh t be different from the original. 03/26/20- COVID 19 test at [facility]- Not Detected Problem Noted Date Diagnosed Date Mammography abnormal 03/19/2020 Overview: Abnormal right breast findings on OS imaging Encounters Date Type Department Care Team Description 04/16/2023 12:35 PM HEALTH AND SAFETY ADVISOR Ancillary Procedure [facility] [address] [address] Krista Larios MD Breast cancer screening after 11/25/2022 Surgical History Surgery Date Site/Laterality Comments APPENDECTOMY I was 9 or 10 COLONOSCOPY 06/11/2017 - 06/10/2018 every 3 years HYSTERECTOMY 06/11/1977 - 06/10/1978 total-ovaries removed CHOLECYSTECTOMY 06/11/1969 - 06/10/1970 UPPER GASTROINTESTINAL ENDOSCOPY 06/11/2017 - 06/10/2018 every 2 yrs / Barretts esophegus BLADDER SUSPENSION 06/11/2011 - 06/10/2012 Medical History Medical History Date Comments Hypertension 2006 Hyperlipidemia 2008 Chronic bronchitis 1989 Gastric reflux too many years Gallstone removed 1969 Endometriosis 2019 found during wu dder surgery Diabetes mellitus 2009 Herpes zoster 2010 Mclaughlin's esophagus Gastroesophageal reflux disease Chronic obstructive pulmonary disease Family History Medical History Relation Name Comments Tuberculosis Maternal Grandfather great GF Ovarian cancer Mother Muna Humphrey i n 1974 Relation Name Status Comments Maternal Grandfather great GF Mother Muna Humphrey Social History Tobacco Use Types Packs/Day Years Used Date Smoking Tobacco: Former Cigarettes 1.5 47.1 0 11/07/1964 - 12/24/2011 Smokeless Tobacco: Never Tobacco Cessation:Counseling Given: No Comments:quit 2011 Alcohol Use Standard Drinks/Week Comments Never 0 (1 standard drink = 0.6 oz pur e alcohol) Sex and Gender Information Value Date Recorded Sex Assigned at Not on file Gender Identity Female 03/25/2020 1:10 PM CDT Sexual Orientation Straight 03/25/2020 1: 10 PM CDT Job Start Date Occupation Industry Not on file Not on file Not on file Obstetrics History Comments Menarche: 14 Parity: 20 OCP: 15? Breast feed: No Total Hys 1977 Premarin (right after surgery until "they decided it was not safe to take it anymore) Plan of Treatment Health Maintenance Due Date Last Done Comments COVID-19 Vaccine ( season) 2023 Influenza Vaccine 02/10/2024 Procedures Procedure Name Priority Date/Time Associated Diagnosis Comments MAMMO DIGITAL SCREENING BILATERAL W PEDRO Routine 04/16/2023 1:44 PM HEALTH AND SAFETY ADVISOR Breast cancer screening after 11/25/2022 Results * Mammography Digital Screening Bilateral with Pedro (04/16/2023 1:44 PM HEALTH AND SAFETY ADVISOR) Anatomical Region Laterality Modality Breast Bilateral Mammography 04/16/2023 2:38 PM HEALTH AND SAFETY ADVISOR Impressions 04/16/2023 2:38 PM HEALTH AND SAFETY ADVISOR There is no mammographic evidence of malignancy. Follow-up mammogram in 1 year is recommended. BI-RADS Category 2: Benign Finding(s) Narrative 04/16/2023 2:38 PM HEALTH AND SAFETY ADVISOR CLINICAL INDICATION: Patient is a 77 year old female and is seen for screening. MAMMO DIGITAL SCREENING BILATERAL W PEDRO Digital Mammogram evaluated with Computer Aided Detection (CAD). COMPARISON: The present examination has been compared to prior imaging studies performed at an outside location on 01/12/2020 and 02/09/2020, and at [facility] on 03/29/2020, 04/04/2021 and 04/06/2022. FINDINGS: There are scattered areas of fibroglandular density. 1: There is a stable oval mass measuring 0.6 centimeters with circumscribed margins in the right breast lower outer quadrant at 8 o'clock located 4 centimeters from the nipple. This has been shown to represent a benign cyst on prior ultrasounds. 2: There are benign appearing calcifications in both breasts. Tomosynthesis performed in and MLO projections. Procedure Note Alireza Blanchard MD - 04/16/2023 CLINICAL INDICATION: Patient is a 77 year old female and is seen for screening. MAMMO DIGITAL SCREENING BILATERAL W PEDRO Digital Mammogram evaluated with Computer Aided Detection (CAD). COMPARISON: The present examination has been compared to prior imaging studiesperformed at an outside location on 01/12/2020 and 02/09/2020, and at [facility] on 03/29/2020, 04/04/2021 and 04/06/2022. FINDINGS: There are scattered areas of fibroglandular density. 1: There is a stable oval mass measuring 0.6 centimeters withcircumscribed margins in the right breast lower outer quadrant at 8 o'clock located 4 centimeters from the nipple. This has been shown to represent a benigncyst on prior ultrasounds. 2: There are benign appearing calcifications in both breasts. Tomosynthesis performed in CC and MLO projections. IMPRESSION: There is no mammographic evidence of malignancy. Follow-up mammogram in 1 year is recommended. BI-RADS Category 2: Benign Finding(s) Yenny Caceres MD IMG MAMMOGRAPHY OR DERABLES after 11/25/2022 Care Teams Welder Relationship Specialty Start Date End Date Krista Larios MD [address] [place] [address] [email or web address] PCP - General Surgical Oncology 03/16/20 Yenny Caceres MD [address] [place] [phone] [email or web address] PCP - External Referring Obstetrics/Gynecology 12/13/21 Yenny Caceres MD [address] [place] [phone] [email or web address] PCP - External Follow Up A Obstetrics/Gynecology 12/13/21
[2023-11-25 17:03] LABS: Absolute Basophils 0.1 K/uL (0-0.5); Absolute Eosinophils 0.1 K/uL (0-0.5); Absolute Lymphocytes (CBC) 2.9 K/uL (0.7-4.9); Absolute Monocytes 1.8 K/uL (0.1-1.3); Absolute Neutrophil 10.6 K/uL (1.8-8.0); Basophils % 0.7 % (0-1.3); Eosinophils % 0.4 % (0-4.4); Hematocrit 36.5 % (36.0-45.0); Hemoglobin 12.3 g/dL (12.0-15.0); Lymphocytes % 18.6 % (15.3-44.8); MCH 32.2 pg (27.0-35.0); MCHC 33.7 g/dL (32.0-36.0); MCV 95.5 fL (80-100); Monocytes % 11.5 % (3.3-12.3); Neutrophils % 68.8 % (41.7-73.7); Nucleated Red Blood Cells % 0.1 % (0-0); Platelets 255 thou/uL (152-406); RBC Red Blood Cell Count 3.82 M/uL (3.86-4.86)
[2023-11-25] MEDS ORDERED: MORPHINE 4 MG/ML SYR ONE (17:09)
[2023-11-25 17:16] LABS: PT Prothrombin Time 12.1 SECONDS (9.5-12.5); Protime INR 1.1
[2023-11-25 17:32] LABS: Troponin High Sensitivity 844.3 pg/mL (<58.9)
[2023-11-25] MEDS ORDERED: CEFTRIAXONE 1000 MG/VIAL ONE (17:36)
[2023-11-25] MEDS ORDERED: METHYLPREDNISOLONE 125 MG INJ ONE (17:37)
[2023-11-25] MEDS ORDERED: IPRATROPIUM BROM 0.5MG/2.5ML ONE (17:37)
[2023-11-25] MEDS ORDERED: AZITHROMYCIN 500 MG INJ IVPB ONE (17:37)
[2023-11-25] MEDS ORDERED: NA CHLORIDE 0.9% 250 ML ONE (17:37)
[2023-11-25] MEDS ORDERED: ALBUTEROL 2.5 MG/3 ML NEB SOL ONE ×2 (17:37→17:39)
[2023-11-25] MEDS ORDERED: NA CHLORIDE 0.9% 1,000 ML ONE ×2 (17:38→18:22)
[2023-11-25] MEDS ORDERED: ASPIRIN 81 MG CHEWABLE TABLET ONE (17:42)
[2023-11-25] MEDS ORDERED: NITROGLYCERIN 0.4 MG/TAB SL ONE (17:43)
--- NOTE | 2023-11-25 17:46 | RAD REPORT ---
EXAM DESCRIPTION: RAD - Chest Single View - 11/25/2023 5:39 pm CLINICAL HISTORY: CHEST PAIN Chest pain. COMPARISON: CHEST PA AND LAT 2 VIEW dated 05/13/2012; CHEST PA AND LAT 2 VIEW dated 06/22/2011; CHEST PA AND LAT 2 VIEW dated 09/02/2010; CHEST PA AND LAT 2 VIEW dated 01/16/2007 FINDINGS: Portable technique limits examination quality. Moderate bilateral pulmonary opacities may represent pulmonary edema or pneumonia. The heart is upper limit normal in size. No displaced fractures.
[2023-11-25] MEDS ORDERED: FENTANYL CITR 100 MCG/2 ML ONE ×2 (18:19→18:49)
--- NOTE | 2023-11-25 18:28 | EDPHYS ---
Physician Documentation [facility] Name: Joy Sarmiento Age: 78 yrs Sex: Female : 1945 Arrival Date: 11/25/2023 Time: 16:43 Bed 6 Private MD: ED Physician Erik Aceves HPI: 11/24 17:04 This 78 yrs old Female presents to ER via Ambulatory with complaints of Chest ec2 Pain, Shortness Of Breath. 17:04 Patient with history of hypertension, hyperlipidemia, diabetes arrives today for chest ec2 pain ongoing for 3 days. Patient reports worsening chest pain, now rating to left chest. Patient reports some chest tightness and some difficulty breathing. History of COPD as well.. Historical: - Allergies: 17:10 TETANUS VACCINES AND TOXOID; hb - PMHx: 17:10 Mclaughlin's Esophagus; GERD; COPD; DM2; hb - PSHx: 17:10 Cholecystectomy; Appendectomy; Bladder Tuck; Hysterectomy; hb - Immunization history:: Adult Immunizations up to date. - Infectious Disease History:: Denies. - Social history:: Smoking status: Patient/guardian denies using tobacco, the patient reports quitting approximately 12 years ago. ROS: 17:04 Constitutional: as per hpi ec2 Exam: 17:04 Constitutional: GEN: Uncomfortable individual Head: atraumatic Eyes: EOMI Ears: ec2 External ears are normal. CV: Tachycardia LUNGS: no respiratory distress, scattered wheezes in the upper lung michel. ABD: non-distended SKIN: no evidence of rashes MSK: no evidence of trauma NEURO: moves all extremities equally Vital Signs: 16:56 BP 108 / 68; Pulse 123; Resp 23; Temp 97.2(O); Pulse Ox 85% on R/A; Pain 8/10; hb 17:00 BP 106 / 65; Pulse 129; Resp 20 S; Pulse Ox 95% on 2 lpm NC; as6 17:30 BP 102 / 69; Pulse 106; Resp 18 S; Pulse Ox 95% on 2 lpm NC; as6 18:00 BP 97 / 77; Pulse 109; Resp 22 S; Pulse Ox 100% on 2 lpm NC; as6 18:30 BP 95 / 56; Pulse 115; Resp 24 S; Pulse Ox 97% on 2 lpm NC; as6 18:35 Weight 62.6 kg; as6 18:55 BP 97 / 59; Pulse 118; Resp 23; Pulse Ox 90% on 15 lpm Non-rebreather mask; as6 16:56 Pain Scale: Adult hb MDM: 16:58 Patient medically screened. ec2 17:04 Data reviewed: vital signs. ED course: Patient arrives today for valuation of chest ec2 pain and chest tightness. Examination remarkable for uncomfortable dividual slightly tachycardic and slight tachypnea. Will obtain lab work, EKG, chest x-ray and treat the patient's pain with morphine. Differential diagnosis included ACS, PE, dissection. Will also obtain CT scan of the chest. 17:05 ED course: EKG obtained, dependently reviewed and interpreted by me, shows sinus ec2 tachycardia, rate 117, motion artifact noted in the anterior leads. Will provide analgesia for the patient home with pain medications obtain repeat EKG. . 17:21 ED course: Repeat EKG after given the morphine, shows sinus tachycardia, rate of 109, ec2 no acute ST segment elevations, ST segments appear more appropriate in the anterior leads after medication along with decrease in artifact. Intervals are otherwise nonconcerning.. 17:54 ED course: Metabolic profile shows appropriate lecture lites, some renal dysfunction ec2 with a GFR 51, CBC shows slight leukocytosis. Troponin is elevated at 844. Bilateral pulmonary opacities noted on the chest x-ray. Septic workup ordered as well. . 18:04 ED course: We did a repeat EKG, does have ST elevation in V2 however no other leads ec2 that are contiguous meet STEMI criteria.. 18:19 ED course: Patient appears in more discomfort, I obtained a repeat EKG, I independently ec2 reviewed and interpreted the EKG, does have ST elevation in leads V1 and V2, I will call for a STEMI activation to our transferring facility. Given fentanyl for pain control. Have loaded with aspirin already.. 18:32 ED course: I discussed case with cardiology at [facility], given the patient's ec2 uncomfortable appearance and elevated troponin, they agreed patient was critical patient to transfer her for cardiac catheterization. On reassessment patient with some improvement in symptoms with the fentanyl. Will proceed with Plavix, heparinization and emergent transfer.. 18:40 ED course: Additionally discussed with cardiology possible PE given the patient's ec2 tachycardia, certainly possible, given the patient's marked discomfort and chest pain I felt it best to continue with anticoagulation and antiplatelet agents and to transfer patient with plan to perform catheterization and possible CT angio of the chest to look for PE if negative catheterization.. 18:52 ED course: Was given patient fluid for hypertensive blood pressures, patient remains ec2 with chest tightness and shortness of breath, my concern will be precipitating acute pulmonary edema. I stopped the fluids, increased her oxygen and will continue with transfer for definitive care.. 11/24 16:50 Order name: Basic Metabolic Panel; Complete Time: 17:54 kb3 11/24 16:50 Order name: CBC with Diff; Complete Time: 17:54 kb3 11/24 16:50 Order name: PT-INR; Complete Time: 17:54 kb3 11/24 16:50 Order name: Troponin HS; Complete Time: 17:54 kb3 11/24 17:05 Order name: Glucose, Ancillary Testing; Complete Time: 17:54 EDMS 11/24 17:28 Order name: Blood Culture Adult (2) ec2 11/24 17:28 Order name: Lactate w/ 2H reflex if indic.; Complete Time: 18:34 ec2 11/24 17:28 Order name: Ptt, Activated; Complete Time: 18:24 ec2 11/24 16:50 Order name: XRAY Chest (1 view); Complete Time: 17:54 kb3 11/24 16:50 Order name: Cardiac monitoring; Complete Time: 17:12 kb3 11/24 16:50 Order name: EKG - Nurse/Tech; Complete Time: 16:57 kb3 11/24 16:50 Order name: IV Saline Lock; Complete Time: 16:57 kb3 11/24 16:50 Order name: Labs collected and sent; Complete Time: 16:57 kb3 11/24 16:50 Order name: O2 Per Protocol; Complete Time: 16:57 kb3 11/24 16:50 Order name: O2 Sat Monitoring; Complete Time: 16:57 kb3 11/24 17:28 Order name: Accucheck; Complete Time: 17:29 ec2 11/24 17:28 Order name: IV Saline Lock - Large Bore; Complete Time: 17:29 ec2 11/24 17:28 Order name: Vital Signs; Complete Time: 17:29 ec2 Administered Medications: 17:12 Drug: morphine IVP or IV 4 mg IVP once over 4 mins Route: IVP; Infused Over: 4 mins; as6 Site: left upper arm; 18:56 Follow up: Response: No adverse reaction as6 17:51 Drug: DuoNeb Nebulize (3:1) (2.5 mg - 0.5 mg) 3 ml Nebulizer once Route: Nebulizer; as6 18:57 Follow up: Response: No adverse reaction as6 17:51 Drug: MethylPrednisoLONE IVP 125 mg IVP once Route: IVP; Site: left upper arm; as6 18:57 Follow up: Response: No adverse reaction as6 17:51 Drug: NS 0.9% IV 1000 ml IV at 1 bolus Per protocol; 1000 mL bolus Route: IV; Rate: 1 as6 bolus; Site: left upper arm; 19:05 Follow up: Response: No adverse reaction; IV Status: Completed infusion; IV Intake: as6 800ml 17:51 Drug: Aspirin PO Chewable Tablet 324 mg PO once; 81 mg tablets x 4 Route: PO; as6 18:57 Follow up: Response: No adverse reaction as6 18:15 Drug: Rocephin IV 1 grams IV at calculated rate once; Given slow IV push per pharmacy as6 instructions Route: IV; Rate: calculated rate; Site: left upper arm; 18:56 Follow up: Response: No adverse reaction; IV Status: Completed infusion; IV Intake: [id number] 18:15 Drug: AZITHromycin IVPB 500 mg IVPB once over 1 hrs; (mix in 250 mL NS) Route: IVPB; as6 Infused Over: 1 hrs; Site: left upper arm; 19:05 Follow up: Response: No adverse reaction; IV Status: Order to discontinue infusion; IV as6 Intake: 140ml 18:20 Drug: fentaNYL (PF) IVP 25 mcg IVP once Route: IVP; Site: left upper arm; as6 19:05 Follow up: Response: No adverse reaction as6 18:28 Drug: NS 0.9% IV 1000 ml IV at 1 bolus Per protocol; 1000 mL bolus Route: IV; Rate: 1 as6 bolus; Site: right forearm; 19:06 Follow up: Response: No adverse reaction; IV Status: Order to discontinue infusion; IV as6 Intake: 200ml 18:46 Drug: Clopidogrel PO 600 mg PO once Route: PO; as6 19:06 Follow up: Response: No adverse reaction as6 18:47 Not Given (Hemodynamic Parameters): nitroglycerin0.4 mg Sublingual once; every five as6 minute if needed x3 18:47 Drug: Heparin (KS-Bolus No thrombolytic) - HEParin IVP 60 units/kg IVP once; Max 5000 as6 units {Co-Signature: carlos (Teresa Bautista RN).} Route: IVP; Site: right forearm; 19:06 Follow up: Response: No adverse reaction as6 18:47 Drug: Heparin (KS Drip) 12 units/kg/[place] - ([place] [address] units, D5W IV 500 ml) IV at as6 calculated rate Per protocol; Max initial rate 1000 units/hr {Co-Signature: carlos (Teresa Bautista RN).} Route: IV; Rate: calculated rate; Site: right forearm; 19:06 Follow up: Response: No adverse reaction; IV Status: Infusion continued upon transfer; as6 IV Intake: 20ml 18:56 Drug: fentaNYL (PF) IVP 50 mcg IVP once Route: IVP; Site: right antecubital; ko1 19:04 Follow up: Response: No adverse reaction as6 19:04 Drug: Ondansetron IVP 4 mg IVP once; over 2 minutes Route: IVP; Site: left upper arm; as6 19:04 Follow up: Response: No adverse reaction as6 Disposition: 18:33 Critical Care:. ec2 Disposition Summary: 11/25/23 18:27 Transfer Ordered Notes: Transfer Location: [facility] ec2 Reason: Higher level of care ec2 Condition: Serious ec2 Problem: new ec2 Symptoms: are unchanged ec2 Accepting Physician: Dr. Dow(11/25/23 19:07) as6 Diagnosis - Chest pain, unspecified ec2 - Elevated Troponin ec2 Forms: - Medication Reconciliation Form ec2 - SBAR form ec2 Critical care time excluding procedures: 18:33 Critical care time: Bedside Care: 30 minutes, Consultation: 5 minutes. Total time: 35 ec2 minutes Signatures: Dispatcher [employer] EDMS Arminda Lay RN RN Adria Parikh RN RN as6 Kelsey Valdez RN RN kb3 Teresa Bautista, CHARLES RN ko1 Erik Aceves MD MD ec2 Teresa Bautista RN ko1 Corrections: (The following items were deleted from the chart) 16:51 16:51 BASIC METABOLIC PANEL+C.LAB.BRZ ordered. EDMS EDMS 16:51 16:51 CBC+H.LAB.BRZ ordered. EDMS EDMS 16:51 16:51 PROTIME (+INR)+COAG.LAB.BRZ ordered. EDMS EDMS 16:51 16:51 Troponin High Sensitivity+C.LAB.BRZ ordered. EDMS EDMS 16:51 16:51 Chest Single View+RAD.RAD.BRZ ordered. EDMS EDMS 17:12 17:10 Allergies: No Known Allergies; hb hb 17:12 17:10 PSHx: Bladder Lift; hb hb 17:36 17:04 Constitutional: GEN: Uncomfortable individual Head: atraumatic Eyes: EOMI Ears: ec2 External ears are normal. CV: Tachycardia LUNGS: no respiratory distress ABD: non-distended SKIN: no evidence of rashes MSK: no evidence of trauma NEURO: moves all extremities equally ec2 18:20 18:19 ED course: Patient appears in more discomfort, obtain repeat EKG, does have ST ec2 elevation in leads V1 and V2, I will call for a STEMI activation to our transferring facility. Given fentanyl for pain control. Have loaded with aspirin already.. ec2 19:07 18:27 Dr. Dow ec2 as6
--- NOTE | 2023-11-25 18:28 | ER ---
Nurse's Notes [facility] Name: Joy Sarmiento Age: 78 yrs Sex: Female : 1945 Arrival Date: 11/25/2023 Time: 16:43 Bed 6 Private MD: Diagnosis: Chest pain, unspecified;Elevated Troponin Presentation: 11/24 16:56 Chief complaint: Midsternal chest pain that radiates to left arm and SOB since last hb night. Coronavirus screen: At this time, the client does not indicate any symptoms associated with coronavirus-19. Ebola Screen: No symptoms or risks identified at this time. Initial Sepsis Screen: Does the patient meet any 2 criteria? No. Patient's initial sepsis screen is negative. Does the patient have a suspected source of infection? No. Patient's initial sepsis screen is negative. Risk Assessment: Do you want to hurt yourself or someone else? Patient reports no desire to harm self or others. Onset of symptoms was November 24, 2023. 16:56 Method Of Arrival: Ambulatory hb 16:56 Acuity: CHERI 2 hb Historical: - Allergies: 17:10 TETANUS VACCINES AND TOXOID; hb - PMHx: 17:10 Mclaughlin's Esophagus; GERD; COPD; DM2; hb - PSHx: 17:10 Cholecystectomy; Appendectomy; Bladder Tuck; Hysterectomy; hb - Immunization history:: Adult Immunizations up to date. - Infectious Disease History:: Denies. - Social history:: Smoking status: Patient/guardian denies using tobacco, the patient reports quitting approximately 12 years ago. Screenin:58 [facility] ED Fall Risk Assessment (Adult) History of falling in the last 3 months, bp including since admission No falls in past 3 months (0 pts). Abuse screen: Denies threats or abuse. Denies injuries from another. Nutritional screening: No deficits noted. Tuberculosis screening: No symptoms or risk factors identified. Assessment: 17:00 General: Appears uncomfortable, ill, Behavior is anxious, restless. as6 17:00 Pain: Complains of pain in chest Quality of pain is described as pressure. as6 Cardiovascular: Reports chest pain. Derm: Skin is diaphoretic, Skin is dusky. 18:48 General: Appears uncomfortable, Behavior is restless. Pain: Complains of pain in chest. as6 Cardiovascular:. Respiratory: Reports shortness of breath labored breathing. Derm: Skin is diaphoretic. Vital Signs: 16:56 BP 108 / 68; Pulse 123; Resp 23; Temp 97.2(O); Pulse Ox 85% on R/A; Pain 8/10; hb 17:00 BP 106 / 65; Pulse 129; Resp 20 S; Pulse Ox 95% on 2 lpm NC; as6 17:30 BP 102 / 69; Pulse 106; Resp 18 S; Pulse Ox 95% on 2 lpm NC; as6 18:00 BP 97 / 77; Pulse 109; Resp 22 S; Pulse Ox 100% on 2 lpm NC; as6 18:30 BP 95 / 56; Pulse 115; Resp 24 S; Pulse Ox 97% on 2 lpm NC; as6 18:35 Weight 62.6 kg; as6 18:55 BP 97 / 59; Pulse 118; Resp 23; Pulse Ox 90% on 15 lpm Non-rebreather mask; as6 16:56 Pain Scale: Adult hb ED Course: 16:44 Patient arrived in ED. mr 16:53 EKG done, by ED staff, reviewed by Erik Aceves MD. hb 16:57 Tee Dyer, RN is Primary Nurse. bp 16:57 Erik Aceves MD is Attending Physician. ec2 16:57 Inserted saline lock: 20 gauge in left upper arm, using aseptic technique. Blood bp collected. 16:58 Triage completed. hb 16:58 Patient has correct armband on for positive identification. bp 17:10 EKG done, by ED staff, reviewed by Erik Aceves MD. hb 17:12 Oxygen administration via nasal cannula \T\ 3L/min. hb 17:12 Client placed on continuous cardiac and pulse oximetry monitoring. NIBP monitoring hb applied. 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 Pulse ox on. NIBP on. 17:40 XRAY Chest (1 view) In Process Unspecified. EDMS 17:45 First set of blood cultures drawn. zm 18:00 Inserted saline lock: 20 gauge in right forearm, using aseptic technique. Blood zm collected. 18:00 Second set of blood cultures drawn. zm 18:06 Blood Culture Adult (2) Sent. zm 18:06 Lactate w/ 2H reflex if indic. Sent. zm 18:06 Ptt, Activated Sent. zm 18:22 Initiated transfer with Alissa from [facility]. jr12 18:32 No provider procedures requiring assistance completed. Patient transferred, IV remains as6 in place. 18:32 Arm band placed on. as6 18:34 Provided Education on: need for transfer. as6 Administered Medications: 17:12 Drug: morphine IVP or IV 4 mg IVP once over 4 mins Route: IVP; Infused Over: 4 mins; as6 Site: left upper arm; 18:56 Follow up: Response: No adverse reaction as6 17:51 Drug: DuoNeb Nebulize (3:1) (2.5 mg - 0.5 mg) 3 ml Nebulizer once Route: Nebulizer; as6 18:57 Follow up: Response: No adverse reaction as6 17:51 Drug: MethylPrednisoLONE IVP 125 mg IVP once Route: IVP; Site: left upper arm; as6 18:57 Follow up: Response: No adverse reaction as6 17:51 Drug: NS 0.9% IV 1000 ml IV at 1 bolus Per protocol; 1000 mL bolus Route: IV; Rate: 1 as6 bolus; Site: left upper arm; 19:05 Follow up: Response: No adverse reaction; IV Status: Completed infusion; IV Intake: as6 800ml 17:51 Drug: Aspirin PO Chewable Tablet 324 mg PO once; 81 mg tablets x 4 Route: PO; as6 18:57 Follow up: Response: No adverse reaction as6 18:15 Drug: Rocephin IV 1 grams IV at calculated rate once; Given slow IV push per pharmacy as6 instructions Route: IV; Rate: calculated rate; Site: left upper arm; 18:56 Follow up: Response: No adverse reaction; IV Status: Completed infusion; IV Intake: [id number] 18:15 Drug: AZITHromycin IVPB 500 mg IVPB once over 1 hrs; (mix in 250 mL NS) Route: IVPB; as6 Infused Over: 1 hrs; Site: left upper arm; 19:05 Follow up: Response: No adverse reaction; IV Status: Order to discontinue infusion; IV as6 Intake: 140ml 18:20 Drug: fentaNYL (PF) IVP 25 mcg IVP once Route: IVP; Site: left upper arm; as6 19:05 Follow up: Response: No adverse reaction as6 18:28 Drug: NS 0.9% IV 1000 ml IV at 1 bolus Per protocol; 1000 mL bolus Route: IV; Rate: 1 as6 bolus; Site: right forearm; 19:06 Follow up: Response: No adverse reaction; IV Status: Order to discontinue infusion; IV as6 Intake: 200ml 18:46 Drug: Clopidogrel PO 600 mg PO once Route: PO; as6 19:06 Follow up: Response: No adverse reaction as6 18:47 Not Given (Hemodynamic Parameters): nitroglycerin0.4 mg Sublingual once; every five as6 minute if needed x3 18:47 Drug: Heparin (IN-Bolus No thrombolytic) - HEParin IVP 60 units/kg IVP once; Max 5000 as6 units {Co-Signature: carlos (Teresa Bautista RN).} Route: IVP; Site: right forearm; 19:06 Follow up: Response: No adverse reaction as6 18:47 Drug: Heparin (IN Drip) 12 units/kg/[place] - ([place] [address] units, D5W IV 500 ml) IV at as6 calculated rate Per protocol; Max initial rate 1000 units/hr {Co-Signature: carlos (Teresa Bautista RN).} Route: IV; Rate: calculated rate; Site: right forearm; 19:06 Follow up: Response: No adverse reaction; IV Status: Infusion continued upon transfer; as6 IV Intake: 20ml 18:56 Drug: fentaNYL (PF) IVP 50 mcg IVP once Route: IVP; Site: right antecubital; ko1 19:04 Follow up: Response: No adverse reaction as6 19:04 Drug: Ondansetron IVP 4 mg IVP once; over 2 minutes Route: IVP; Site: left upper arm; as6 19:04 Follow up: Response: No adverse reaction as6 Medication: 18:32 VIS not applicable for this client. as6 Intake: 18:56 IV: 10ml; Total: 10ml. as6 19:05 IV: 140ml; Total: 150ml. as6 19:05 IV: 800ml; Total: 950ml. as6 19:06 IV: 200ml; Total: 1150ml. as6 19:06 IV: 20ml; Total: 1170ml. as6 Outcome: 18:27 ER care complete, transfer ordered by . ec2 18:32 [place] [facility] [facility] [place]. as6 X-rays sent w/ patient. 18:32 Condition: stable 18:32 Instructed on the need for transfer, 19:07 Patient left the ED. as6 Signatures: Dispatcher [employer] IVON Mady Denis, Reg Reg mr Lay Arminda, RN RN Tee Sams, RN RN bp Adria Parikh RN RN as6 Lizzy Shah zm Teresa Bautista RN RN ko1 Erik Aceves MD MD 2 Debbie Hampton [facility] Teresa Bautista RN ko1 Corrections: (The following items were deleted from the chart) 17:10 16:56 BP 108 / 68; Pulse 123bpm; Resp 23bpm; Pulse Ox 87% RA; Temp 97.2F Oral; Pain hb 8/10, Adult; hb 17:12 17:10 Allergies: No Known Allergies; hb hb 17:12 17:10 PSHx: Bladder Lift; hb hb 18:05 18:05 Inserted saline lock: 20 gauge in right forearm, using aseptic technique. Blood zm collected. zm
[2023-11-25] MEDS ORDERED: CLOPIDOGREL 75 MG TABLET ONE (18:40)
[2023-11-25] MEDS ORDERED: HEPARIN 5000 UNIT/ML 1 ML VIAL ONE (18:40)
[2023-11-25] MEDS ORDERED: HEPARIN/D5W 25,000 UNIT/500 ML BAG IV ONE (18:41)
[2023-11-25] MEDS ORDERED: ONDANSETRON 4 MG/2 ML VIAL ONE (18:57)
[2023-11-25 19:32] VITALS: BP 97/59; TEMP 97.2; O2SAT 90
--- NOTE | 2023-11-26 14:53 | EKG ---
Test Date: 2023-11-25 Test Time: 17:59:28 Rubber Down: MEASUREMENT RESULTS: Intervals: Rate: 102 NH: 146 QRSD: 84 QT: 330 QTc: 430 [place]: P: 67 NH: 146 QRS: 35 T: 107 INTERPRETIVE STATEMENTS: Sinus tachycardia Nonspecific T wave abnormality Abnormal ECG Compared to ECG 11/25/2023 17:19:11 No significant changes Electronically Signed On 11-26-23 14:51:02 CDT by Allan Roldan
--- NOTE | 2023-11-26 14:53 | EKG ---
Test Date: 2023-11-25 Test Time: 18:14:32 Cable Operator: MEASUREMENT RESULTS: Intervals: Rate: 116 CA: 152 QRSD: 94 QT: 308 QTc: 428 [place]: P: 73 CA: 152 QRS: 32 T: 126 INTERPRETIVE STATEMENTS: Sinus tachycardia with occasional premature ventricular complexes ST & T wave abnormality, consider lateral ischemia Abnormal ECG Compared to ECG 11/25/2023 17:59:28 Ventricular premature complex(es) now present ST (T wave) deviation now present Possible ischemia now present T-wave abnormality no longer present Electronically Signed On 11-26-23 14:50:58 CDT by Allan Roldan
--- NOTE | 2023-11-26 14:54 | EKG ---
Test Date: 2023-11-25 Test Time: 17:07:11 Tamper Operator: ARMANDO MEASUREMENT RESULTS: Intervals: Rate: 116 FL: 162 QRSD: 90 QT: 306 QTc: 425 [place]: P: 64 FL: 162 QRS: 21 T: 125 INTERPRETIVE STATEMENTS: Sinus tachycardia Nonspecific ST and T wave abnormality Abnormal ECG Compared to ECG 11/25/2023 16:53:55 ST (T wave) deviation now present Electronically Signed On 11-26-23 14:51:06 CDT by Allan Roldan
--- NOTE | 2023-11-26 14:54 | EKG ---
Test Date: 2023-11-25 Test Time: 16:53:55 Grocery Stocker: HB MEASUREMENT RESULTS: Intervals: Rate: 117 NM: 154 QRSD: 80 QT: 298 QTc: 415 [place]: P: 61 NM: 154 QRS: 28 T: 98 INTERPRETIVE STATEMENTS: Sinus tachycardia Otherwise normal ECG Compared to ECG 11/25/2023 16:53:13 No significant changes Electronically Signed On 11-26-23 14:51:09 CDT by Allan Roldan
--- NOTE | 2023-11-26 14:54 | EKG ---
Test Date: 2023-11-25 Test Time: 16:53:13 Sail Cutter: HB MEASUREMENT RESULTS: Intervals: Rate: 117 [place]: 148 QRSD: 86 QT: 298 QTc: 415 [place]: P: 66 [place]: 148 QRS: 31 T: 109 INTERPRETIVE STATEMENTS: Sinus tachycardia Low voltage QRS Borderline ECG Compared to ECG 10/15/2004 03:27:00 Low QRS voltage now present Sinus rhythm no longer present Electronically Signed On 11-26-23 14:51:10 CDT by Allan Roldan
--- NOTE | 2023-11-26 14:54 | EKG ---
Test Date: 2023-11-25 Test Time: 17:19:11 Sanitary [place] Machine Tender: ARMANDO MEASUREMENT RESULTS: Intervals: Rate: 109 TN: 152 QRSD: 86 QT: 324 QTc: 436 [place]: P: 74 TN: 152 QRS: 37 T: 99 INTERPRETIVE STATEMENTS: Sinus tachycardia Abnormal QRS-T angle, consider primary T wave abnormality Abnormal ECG Compared to ECG 11/25/2023 17:07:11 T-wave abnormality now present ST (T wave) deviation no longer present Electronically Signed On 11-26-23 14:51:05 CDT by Allan Roldan
== END 2023-11-25 19:07 | disposition short-term general hospital (02) ==
LOC: ER 16:43
DX: R07.89 Other chest pain (principal); R79.89 Other specified abnormal findings of blood chemistry
CPT/HCPCS: 93005 ×6; 87040 ×2; 85025; 80048; 36415; 85610; 82947; 83605; 85730; 84484; 71045; 94640; 99285; J1644; J7613 ×2; J7644; J3010 ×2; J2919; J2405; J7050; J7030 ×2; J0696